=== PATIENT | male | born 1950 | race Caucasian/White ===

== ENCOUNTER 2017-05-08 07:22 | Day surgery (SDC) | payer MEDICARE, OTHER ==
[2017-05-08] VITALS (11 sets, daily range): BP systolic 120–158; BP diastolic 72–91
[~2017-05-08] VITALS: Ht 172.7 cm; Wt 72.6 kg
--- NOTE | 2017-05-08 07:25 | Pre-Procedure Note/Attestation ---
Pre-Procedure Note/Attestation Complete Prior to Procedure Planned Procedure: right Procedure Narrative: excision of right lateral groin soft tissue mass Repair of ventral epigastric hernia Attestation I attest that I discussed the nature of the procedure; its benefits; risks and complications; and alternatives (and the risks and benefits of such alternatives ), prior to the procedure, with the patient (or the patient's legal call center support representative). I attest that, if there was a reasonable possibility of needing a blood transfusion, the patient (or the patient's legal call center support representative) was given the [facility] standardized written summary, pursuant to the Kevyn Rere Blood Safety Act ([place] Health and Safety Code # 1645, as amended). I attest that I re-evaluated the patient just prior to the surgery and that there has been no change in the patient's H&P, except as documented below: ADENIKE JIN May 08, 2017 07:25
[2017-05-08] MEDS ORDERED: NKM (07:56)
[2017-05-08] MEDS ORDERED: Bupivacaine w/Epi 0.25% 30ml Vial INJ ONE (08:16)
[2017-05-08] MEDS ORDERED: Bacitracin 50000 Units Vial ONE (08:16)
[2017-05-08] MEDS ORDERED: Neostigmine 1mg/ml 10ml Inj ONE (08:30)
[2017-05-08] MEDS ORDERED: Glycopyrrolate 0.2mg/ml 1ml Vial ONE ×2 (08:30)
[2017-05-08] MEDS ORDERED: fentaNYL 100 mcg/2 mL IV ONE (08:30)
[2017-05-08] MEDS ORDERED: LR 1000ml ONE (08:30)
[2017-05-08] MEDS ORDERED: Sterile Water Irrig 1000ml IRRIG ONE (08:30)
[2017-05-08] MEDS ORDERED: Midazolam 2mg/2ml Inj ONE (08:30)
[2017-05-08] MEDS ORDERED: NS Irrig 1000ml ONE (08:30)
[2017-05-08] MEDS ORDERED: Dexamethasone 4mg/ml vial ONE (08:30)
[2017-05-08] MEDS ORDERED: Lidocaine 1% MPF 10mg/ml 5ml ONE (08:30)
[2017-05-08] MEDS ORDERED: Nimbex 2mg/ml Inj 10ML IVP ONE (08:30)
[2017-05-08] MEDS ORDERED: Propofol 10mg/ml 20ml IV ONE (08:30)
[2017-05-08] MEDS ORDERED: LR 1000ml 1,000 ML IVLG SCH (08:36)
--- NOTE | 2017-05-08 08:36 | Anethesia Preoperative Eval ---
Anesthesia Pre-op PMH/ROS General Date of Evaluation: May 08, 2017 Time of Evaluation: 08:31 Anesthesiologist: Erika ASA Score: ASA 3 Mallampati Score Class I : Soft palate, uvula, fauces, pillars visible Class II: Soft palate, uvula, fauces visible Class III: Soft palate, base of uvula visible Class IV: Only hard plate visible Mallampati Classification: Class II Surgeon: Janet Diagnosis: Ventral Hernia Surgical Procedure: Ventral Hernia Repair Anesthesia History: none Family History: no anesthesia problems Allergies: Coded Allergies: No Known Allergies (Unverified , 05/07/17) Medications: see eMAR Past Medical History Cardiovascular: Reports: other - HL Gastrointestinal/Genitourinary: Reports: GERD Hematology/Immune: Reports: other - Melanoma PSxH Narrative: Finger SX, Cat Ext IOL, RIH repair Anesthesia Pre-op Phys. Exam Physician Exam Last Vital Signs Date Time Temp Pulse Resp B/P Pulse Ox O2 Delivery O2 Flow Rate FiO2 05/08/17 08:14 97.2 41 18 129/72 97 Room Air Constitutional: NAD Neurologic: CN 2-12 intact Cardiovascular: RRR Respiratory: CTA Gastrointestinal: S/NT/ND Airway Exam Mallampati Score: Class II MO: full ROM: limited Teeth: intact Anesthesia Pre-op A/P Risk Assessment & Plan Assessment: ASA 3 Plan: GA, BIS, Glidescope Status Change Before Surgery: No Pre-Antibiotics Dru Gram Ancef IV Given Within 1 Hr of Incision: Yes Time Given: 08:41 Sancho James MD May 08, 2017 08:36
[2017-05-08] MEDS ORDERED: LORazepam Inj 2mg/ml 1ml IV PRN (08:45)
[2017-05-08] MEDS ORDERED: Norco 7.5mg/325mg tab ORAL PRN (08:45)
[2017-05-08] MEDS ORDERED: Oxycodone/Acetaminophen 5-325 ORAL PRN (08:45)
[2017-05-08] MEDS ORDERED: Midazolam 2mg/2ml Inj IVP PRN (08:45)
[2017-05-08] MEDS ORDERED: Norco 5mg/325mg tab ORAL PRN (08:45)
[2017-05-08] MEDS ORDERED: Metoclopramide 10mg/2ml Inj IVP PRN (08:45)
[2017-05-08] MEDS ORDERED: Ketorolac 60mg Inj IV PRN (08:45)
[2017-05-08] MEDS ORDERED: Ketorolac 30mg Inj IV PRN (08:45)
[2017-05-08] MEDS ORDERED: DiphenhydrAMINE 50mg/ml Inj IVP PRN (08:45)
[2017-05-08] MEDS ORDERED: Atropine Inj 1mg/10ml Syr IV PRN (08:45)
[2017-05-08] MEDS ORDERED: fentaNYL 100 mcg/2 mL IV PRN (08:45)
[2017-05-08] MEDS ORDERED: Hydromorphone 0.5mg/0.5ml inj IVP PRN (08:45)
[2017-05-08] MEDS ORDERED: Meperidine 25mg/0.5ml Inj IV PRN (08:45)
--- NOTE | 2017-05-08 09:09 | Immediate Post-Op Evaluation ---
Immediate Post-Op Evalulation Immediate Post-Op Evalulation Procedure: Ventral Hernia Repair Date of Evaluation: May 08, 2017 Time of Evaluation: 10:04 IV Fluids: 500 LR Blood Products: 0 Estimated Blood Loss: 8 Urinary Output: 0 Blood Pressure Systolic: 150 Blood Pressure Diastolic: 91 Pulse Rate: 72 Respiratory Rate: 16 O2 Sat by Pulse Oximetry: 99 Temperature (Fahrenheit): 97.5 Pain Score (1-10): 2 Nausea: No Vomiting: No Complications 0 Patient Status: awake, reacts, patent, extubated, none Hydration Status: adequate Dru Gram Ancef IV Given Within 1 Hr of Incision: Yes Time Given: 08:41 Sancho James MD May 08, 2017 09:09
--- NOTE | 2017-05-08 09:09 | 48 Hour Post Anesthesia Eval ---
Post Anesthesia Evaluation Procedure: Ventral Hernia Repair Date of Evaluation: May 08, 2017 Time of Evaluation: 12:17 Blood Pressure Systolic: 141 0: 81 Pulse Rate: 56 Respiratory Rate: 18 Temperature (Fahrenheit): 98.1 O2 Sat by Pulse Oximetry: 100 Airway: patent Nausea: No Vomiting: No Pain Intensity: 2 Hydration Status: adequate Cardiopulmonary Status: Stable Mental Status/LOC: patient returned to baseline Follow-up Care/Observations: 0 Post-Anesthesia Complications: 0 Follow-up care needed: ready to discharge Sancho James MD May 08, 2017 09:09
--- NOTE | 2017-05-08 09:54 | Brief Operative Note ---
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 ventralex mesh ADENIKE JIN May 08, 2017 09:54
[2017-05-08] MEDS ORDERED: HYDROmorphone 1mg/ml Carpuject SUBQ PRN (10:00)
[2017-05-08] MEDS ORDERED: Tylenol #3 tab (300mg/30mg) ORAL PRN (10:00)
--- NOTE | 2017-05-08 17:45 | Operative Note - Dictated ---
DATE OF OPERATION: 05/08/2017 SURGEON: Piotr Gonzales M.D. SUPERVISOR CYTOGENETIC LABORATORY: None. ANESTHESIOLOGIST: Dr. Sancho James. ANESTHESIA: General. PREOPERATIVE DIAGNOSIS: 1. Ventral epigastric hernia. 2. Left lateral groin-hip soft tissue mass. POSTOPERATIVE DIAGNOSIS: 1. Ventral epigastric hernia. 2. Left lateral groin-hip soft tissue mass. NAME OF OPERATION: 1. Repair of ventral epigastric hernia with mesh. 2. Excision of left lateral groin-hip soft tissue mass (lipoma). FINDINGS AND INDICATIONS: The patient is a very pleasant 66-year-old male with a history of an increasing ventral epigastric hernia, which was incarcerated and irreducible with some pain. No tenderness. No strangulation. The patient also complained of a left hip soft tissue mass growing over the last few years. At surgery indeed a small defect was found just above the umbilicus, which was consistent with a ventral epigastric hernia, which was repaired with a 1.7 inch in diameter Ventralex 1.7 inch mesh uneventfully and right hip lipoma was removed as described. PROCEDURE: With the patient lying in the supine position on the operative table under general anesthesia with the entire abdominal area and the right hip and groin areas prepped and draped in usual sterile fashion with Betadine, a vertical incision was carried out above the umbilicus. Subcutaneous tissues divided. The hernia was identified and the contents were then carefully dissected free and removed and sent to pathology. The area was irrigated. Hemostasis was adequate. The edges were then cleansed below the peritoneum and the 1.7 inch in diameter mesh was then deployed and secured in place at the 12 o'clock, 3 o'clock, 6 o'clock, and 9 o'clock positions with 2-0 Prolene suture through and through the fascia tight below the peritoneum. The fascia was then closed over this with a continuous 0 Vicryl suture. Subcutaneous tissues were closed with 3-0 Vicryl suture and the skin with 4-0 Vicryl subcuticular sutures and Steri-Strips. Marcaine 0.5% with epinephrine 20 mL was injected for long-acting local anesthetic. Attention was then paid to the left hip soft tissue mass, which was opened through a transverse incision. Subcutaneous tissues divided. The mass was then encircle it entirety by blunt and sharp means and removed and sent to pathology. Hemostasis was adequate. The area was irrigated and the subcutaneous tissues were approximated with 3-0 Vicryl suture and the skin with 4-0 Vicryl subcuticular suture and Steri-Strips. Sponge and needle counts correct. Estimated blood loss was less than 5 mL. Piotr Gonzales M.D. DR: GHASSAN/ JOB#: [id number] CC:
== END 2017-05-08 13:30 | disposition home or self-care (01) ==
LOC: SUR 07:22
DX: K43.6 Other and unspecified ventral hernia with obstruction, without gangrene (principal); D17.79 Benign lipomatous neoplasm of other sites; E78.5 Hyperlipidemia, unspecified; K21.9 Gastro-esophageal reflux disease without esophagitis; M54.16 Radiculopathy, lumbar region; M75.02 Adhesive capsulitis of left shoulder; Z85.820 Personal history of malignant melanoma of skin; Z87.891 Personal history of nicotine dependence
CPT/HCPCS: 27047; 49561; 49568; C1781; J0690; J1100; J2250; J2405; J2704; J2710; J2765; J3010; J7120; 94003; 94150; J2180